=== PATIENT | male | born 1985 | race African-American/Black ===

== ENCOUNTER 2016-10-28 23:50 | Inpatient (IN) | payer OTHER ==
--- NOTE | ~2016-10-28 | CN ---
Consultation Report [facility] [address] [place]. [address] NAME: ORAL PERKINS : 85 STATUS : ADM IN PAT#: [id number] AGE: 31 ADM/REG DATE : 10/29/16 MR#: [id number] REPORT SERV DATE: 10/30/16 DICTATED BY: RALF MARIEE DATE: 10/30/16 REPORT STATUS : Draft TRANSCRIBED BY: MODDeven DATE: 10/30/16 INFECTIOUS DISEASE CONSULT DATE OF CONSULTATION: REASON FOR REFERRAL: Evaluation and treatment of diabetic foot infection. HISTORY OF PRESENT ILLNESS: The patient is a 31-year-old male. He has a history of hypertension, recently poorly-controlled diabetes, hypothyroidism. He has had a DVT in the past. He developed ulcer on his distal lateral right foot in September that grew progressively worse. He states it began spontaneously, perhaps from his shoe. He had no trauma, no cuts or scratches. He has not walked outside barefoot, not been bitten or scratched by an animal. No unusual environmental exposures such as travel. He was [facility] and had a local debridement, was treated with oral Septra. I do not see that any cultures were done there. He had worsening and frankly gangrenous changes in the fifth toe and so came in and was admitted yesterday. Culture of blood was taken and so far that is negative. A culture of the foot was taken upon presentation, but it has only grown Coag- negative staph. It sounds like it was just a surface culture. Because of the gangrenous changes, he was taken to surgery yesterday and the toe was amputated by Dr. Garcia. He had been started empirically on vancomycin and Zosyn. He also had an MRI that showed osteomyelitis, but only in the distal toe. He remains on the vancomycin and Zosyn. He has not had any sensations of fevers or chills at home and his temperature here has been normal. He did have an elevated white blood cell count at presentation of 18,000 with no bands. PAST MEDICAL HISTORY: Otherwise unremarkable. MEDICATIONS: As mentioned above. ALLERGIES: HE HAS NO KNOWN ANTIMICROBIAL ALLERGIES. SOCIAL HISTORY: He is currently disabled, single, nonsmoker. No history of alcohol or substance abuse. FAMILY HISTORY: Noncontributory. PHYSICAL EXAMINATION: GENERAL: Nontoxic adult male in no acute distress. Alert and oriented x3. VITAL SIGNS: His temperature at present 98.5 with a pulse of 82, respirations are 18, blood pressure 99/51. Weight is 152 kg. HEENT: Sclerae are clear. No oral lesions. NECK: Supple. LUNGS: Clear. HEART: Regular rate and rhythm. ABDOMEN: Soft, nontender. Positive bowel sounds. Consultation Report [address] [place] [facility] [address] NAME: ORAL PERKINS : 85 STATUS : ADM IN [facility]#: [id number] AGE: 31 ADM/REG DATE : 10/29/16 MR#: [id number] REPORT SERV DATE: 10/30/16 DICTATED BY: RALF MARIEE DATE: 10/30/16 REPORT STATUS : Draft TRANSCRIBED BY: BISI DATE: 10/30/16 EXTREMITIES: The foot was covered by a bulky surgical dressing. It was just placed on the foot so that was not removed. There was no warmth or redness above that, but there was edema in both lower extremities consistent with venous stasis. No other acute-appearing lesions. LABORATORY DATA: His white blood cell count today 14.7 with hematocrit 24.7 and platelets 579. No bandemia today. BUN and creatinine 14 and 1.4. Cultures as previously mentioned. IMPRESSION: Diabetic foot infection. It is probably mixed bacteria to include gram-positive cocci, gram-negative rods, or anaerobes. So far, the cultures have been completely unhelpful. It would appear based on the surgery than the MRI results, that all of the osteo has now been removed. RECOMMENDATIONS: 1. Review the cultures again tomorrow. 2. Continue Zosyn along with vanc for now. He should not need a long course of antibiotics since the osteo has been removed, but if we have no further information from the cultures, we will have to devise an empiric regimen to treat, perhaps a two- week total course of antibiotics. Finally, I will follow the patient with you. I appreciate very much your consulting on this patient. GILSON Ralf Mariee M.D. / [id number] CC: Stanley Restrepo ANGELA C
--- NOTE | ~2016-10-28 | DS ---
Discharge Summary [facility] [address] [facility] [place]. [address] NAME: ORAL PERKINS : 85 STATUS : DIS IN PAT#: [id number] AGE: 31 ADM/REG DATE : 10/29/16 MR#: [id number] REPORT SERV DATE: 11/06/16 DICTATED BY: SARANYA HENRY DATE: 11/05/16 REPORT STATUS : Draft TRANSCRIBED BY: MODL DATE: 11/05/16 ADMISSION DATE: 10/29/2016 DISCHARGE DATE: 11/05/2016 DISCHARGE DIAGNOSES: 1. Right side fifth toe osteomyelitis, status post ray amputation by Dr. Garcia. 2. Diabetic foot ulcer with diabetes mellitus. 3. Acute kidney injury on chronic kidney disease recovered back to his baseline function. 4. Chronic anticoagulation with Coumadin for previous deep vein thrombosis. 5. BMI 46.7. 6. Anemia postoperatively with acute blood loss, status post one unit of transfusion. HISTORY OF PRESENT ILLNESS: This is a 31-year-old male patient who came to the hospital with pain on his foot. Please see dictated H and P. HOSPITAL COURSE: He was admitted to hospital with diabetic foot ulcer, was treated surgically and medically. Please see dictated consultation from Dr. Tong and Dr. Garcia. Please see dictated interim discharge summary done by Dr. Faulkner. He had identified with osteomyelitis on the fifth right-sided toe, had amputation with Dr. Garcia. Antibiotics being managed by Dr. Tong, and his wound culture is showing anything specific pathogen. He has been treated with empiric broad-spectrum antibiotics. Now, I recommend continuing Augmentin for seven more days. During the hospitalization, he was found to have more anemia. He had 1 transfusion given postoperatively. There is no evidence of bleeding. He remains in stable condition. His kidney function improved back to his normal, and he is tolerating his amputation. Physical therapy has evaluated this patient for the nonweightbearing on the right foot. The patient was followed by wound care and will be discharged home in stable condition. DISCHARGE MEDICATIONS: Augmentin 875 mg twice a day for seven more days. Continuing all home medications including Coumadin 10 mg once a day and Levemir. DISPOSITION: The patient is discharged home in stable condition, need to follow up at [facility] and Dr. Garcia. TIME SPENT: More than 30 minutes. EKL/MODL Saranya Henry M.D. / [id number] Discharge Summary [place] [address] [place]. [address] NAME: ORAL PERKINS : 85 STATUS : DIS IN PAT#: [id number] AGE: 31 ADM/REG DATE : 10/29/16 MR#: [id number] REPORT SERV DATE: 11/06/16 DICTATED BY: SARANYA HENRY DATE: 11/05/16 REPORT STATUS : Draft TRANSCRIBED BY: BISI DATE: 11/05/16 CC: Stanley Wakefield
--- NOTE | ~2016-10-28 | OP ---
Record Of Operation [facility] [address] [place]. [address] NAME: ORAL PERKINS : 85 STATUS : ADM IN PAT#: [id number] AGE: 31 ADM/REG DATE : 10/29/16 MR#: [id number] REPORT SERV DATE: 10/29/16 DICTATED BY: TULIO GARCIA JR. DATE: 10/29/16 REPORT STATUS : Draft TRANSCRIBED BY: MODL DATE: 10/29/16 DATE OF PROCEDURE: 10/29/2016 PREOPERATIVE DIAGNOSIS: Wet gangrene, right 5th toe. POSTOPERATIVE DIAGNOSIS: Wet gangrene, right 5th toe. OPERATION: Ray amputation of right 5th toe. SURGEON: Dr. Tulio Garcia. HISTORY: This is a 31-year-old black male, admitted to the hospital early this morning with wet gangrene of his right 5th toe. He had a white count of 18,000. He is a known diabetic with hemoglobin A1c in the 15 range. PROCEDURE IN DETAIL: The patient was placed on the operating room table. He underwent a general endotracheal anesthetic. Right foot was prepped and draped in a sterile manner as possible. A dorsal incision was made. A racquet-shaped incision was made around the base of the 5th toe. Dissection was carried down the metatarsal shaft, which was then cleared of tissue with an elevator. A power saw was then used to transect the metatarsal shaft proximal to the metatarsal bone. The toe was then carved out of the wound. There were focal digital bleeders that were cauterized. Cultures were done deep in the wound. The wound was irrigated. The dorsal skin of the foot was closed loosely with 3-0 nylon. The wound was packed open with 4 x 4. The patient tolerated the procedure well and taken back to recovery room in serious condition. There were no intraoperative complications. ESTIMATED BLOOD LOSS: 300 mL. DF/MODL Tulio Garcia Jr., M.D. / [id number] CC: Stanley Restrepo ANGELA C
--- NOTE | ~2016-10-28 | HP ---
History And Physical [place] [id number] [facility] [place]. [address] NAME: ORAL PERKINS : 85 STATUS : ADM IN PAT#: [id number] AGE: 31 ADM/REG DATE : 10/29/16 MR#: [id number] REPORT SERV DATE: 10/29/16 DICTATED BY: RAQUEL MONSALVE DATE: 10/29/16 REPORT STATUS : Draft TRANSCRIBED BY: MODL DATE: 10/29/16 DATE OF ADMISSION: 10/29/2016 CHIEF COMPLAINT: A 31-year-old male presenting with progressive right diabetic foot ulcer. HISTORY OF PRESENTING ILLNESS: The patient's history was obtained through careful interview with the patient, coupled with review of [facility] medical records. The patient, in the end of 09/2016, developed a new right foot ulcer. He does not recall any injury or any kind of event that led to this ulcer. It simply appeared one day apparently. He thinks it first had a blister that then began to drain a pussy yellow discharge and then had increasing redness and pinkness around it. He has been on antibiotics since 10/17/2016 and has been seen by [facility], but has only had worsening discomfort and purulent drainage from this site. He describes right foot pain, an aching quality, 10/10 severity, making it difficult to ambulate. For the last three days, he has had myalgias diffusely and is becoming increasingly ill. No fevers or chills. No nausea or vomiting. Earlier in 2016, he had "run out" of his diabetes medications and so when he had a hemoglobin A1c of 15.4 on 10/14/2016, he states it is because he had not been taking insulin for an extended period of time. However, over these last few weeks, he has been back on insulin with better control of his diabetes apparently. REVIEW OF SYSTEMS: Otherwise, a 14-point review of systems was obtained and was negative. PAST MEDICAL HISTORY: 1. Diabetes. Hemoglobin A1c of 15.4, 10/2016, but with sugars improved recently on insulin. 2. Hypothyroidism. 3. DVT, 2012, on chronic Coumadin. Also had an IVC filter placement. 4. Hypertension. 5. Right breast gynecomastia. PAST SURGICAL HISTORY: 1. Left hip surgery x2. 2. Left partial foot amputation 2015 for infection. 3. IVC filter placement. ALLERGIES: NO KNOWN DRUG ALLERGIES. History And Physical [address] [place]. [address] NAME: ORAL PERKINS : 85 STATUS : ADM IN PAT#: [id number] AGE: 31 ADM/REG DATE : 10/29/16 MR#: [id number] REPORT SERV DATE: 10/29/16 DICTATED BY: RAQUEL MONSALVE DATE: 10/29/16 REPORT STATUS : Draft TRANSCRIBED BY: BISI DATE: 10/29/16 SOCIAL HISTORY: No tobacco abuse. No alcohol abuse. He is single. Lives with a friend. Has a 4-year-old daughter. Is on disability. Unemployed. FAMILY HISTORY: Diabetes. CURRENT MEDICATIONS: Include hydrocodone p.r.n., sliding-scale insulin, Levemir 15 units in the morning and 20 units at night, Bactrim double strength p.o. b.i.d., Paxil, lisinopril, Synthroid, glyburide, Lipitor, Coumadin. PHYSICAL EXAMINATION: VITAL SIGNS: Temperature 97.6, pulse 106, blood pressure 130/78, respiratory rate 18, O2 saturation 95% on room air. GENERAL: A pleasant, cooperative male. He is in evidence of distress secondary to right foot pain. HEENT: Pupils equal, round, and reactive to light. No conjunctival pallor. No scleral icterus. Nares are patent. Oropharynx is clear of obstruction. Dry mucous membranes. NECK: Trachea midline. No thyromegaly. LYMPH: No cervical lymphadenopathy. No supraclavicular lymphadenopathy. No right inguinal lymphadenopathy. RESPIRATORY: Clear to auscultation at bases. No wheezes, rales, or rhonchi. Normal respiratory effort. CARDIOVASCULAR: Tachycardic, regular rhythm. No murmurs, rubs, or gallops. The patient does have edema of the lower extremities that is symmetrical. Nonpitting though. ABDOMEN: Soft, nontender, nondistended. Normal bowel sounds auscultated throughout. No hepatosplenomegaly. DERMATOLOGICAL: The patient's right foot has a large necrotic-appearing ulcer with copious brownish pussy discharge. It is underneath his fifth digit. It is surrounded with erythema, heat, swelling, and tenderness, but otherwise warm and dry extremities. No pallor, no cyanosis. PSYCHIATRIC: Normal affect. Good mood. Alert and oriented x3. LABORATORY DATA: White blood cell count 18.2, hemoglobin 10, hematocrit 31, platelets 641. Sodium 135, potassium 4.2, chloride 98, bicarb 27, BUN 17, creatinine 1.29 from baseline creatinine of 0.9, glucose 127. Urinalysis negative for infection, but shows 100 protein, lipase 60, albumin 2.8. INR 1.6. Liver enzymes within normal limits. STUDIES: 1. Review of an arterial Doppler ultrasound and a venous Doppler ultrasound of lower extremities on 10/15/2016 showed no blood clots. No significant peripheral arterial disease. 2. Chest x-ray by my own evaluation shows no acute cardiopulmonary process. 3. A CT scan of the abdomen and pelvis was reported as essentially negative except for right inguinal lymphadenopathy (not recognized on exam). 4. Reported x-ray of the right foot suggested osteomyelitis. ASSESSMENT AND PLAN: 1. Sepsis. White blood cell count of 18.2, tachycardia. Check blood culture. Check History And Physical [address] [address] NAME: ORAL PERKINS : 85 STATUS : ADM IN [facility]#: [id number] AGE: 31 ADM/REG DATE : 10/29/16 MR#: [id number] REPORT SERV DATE: 10/29/16 DICTATED BY: RAQUEL MONSALVE DATE: 10/29/16 REPORT STATUS : Draft TRANSCRIBED BY: BISI DATE: 10/29/[address] on IV antibiotics. 2. Right foot infected diabetic ulcer with osteomyelitis. Obtain a wound culture at the bedside. Place on IV vancomycin, IV Zosyn. Check an MRI to define the extent of disease. Consult Dr. Cervantes, vascular surgeon, for anticipated partial amputation of the foot. 3. Diabetes. Recent hemoglobin A1c of 15.4, but had "run out" of medications and states that his diabetes has been under better control on home Levemir. We will continue this basal insulin, sliding scale insulin. Obtain a healthcare educator consult. 4. History of deep vein thrombosis, 2012, with IVC filter placement, but a negative Doppler ultrasound of the leg for deep vein thrombosis earlier in 10/2016. Holding Coumadin for anticipated surgery. KPL/MODL Raquel Monsalve M.D. / [id number] CC: Stanley Wolfe
--- NOTE | ~2016-10-28 | CN ---
Consultation Report [facility] [address] [place]. [address] NAME: ORAL THOMPSON : 85 STATUS : ADM IN PAT#: [id number] AGE: 31 ADM/REG DATE : 10/29/16 MR#: [id number] REPORT SERV DATE: 10/31/16 DICTATED BY: DATE: REPORT STATUS : Draft TRANSCRIBED BY: MODL DATE: 10/31/16 CONSULTATION DATE OF CONSULTATION: REASON FOR CONSULTATION: Acute kidney injury versus CKD. HISTORY OF PRESENT ILLNESS: Mr. Thompson is a 31-year-old black male, with a history of acute kidney injury in the past. We saw him at [facility] last year, at that time he had osteomyelitis, and underwent a partial foot amputation to the left. Creatinine peaked at 3. It sounds like, since then, he has had no care for his kidney disease, as he did not get a regular lab testing, so in the interim I am unsure of what his kidney function has done. When we signed off on him last year his creatinine was still 3, we send him home on some Lasix and he never followed up as he was supposed to. He is in the hospital at [facility] at this time for osteoma of the right 5th toe. He is now status post 5th ray amputation, postop day #1, creatinine was 1.3. When he came in today it is 1.4. He does have diabetes with neuropathy. He is unsure if he has any retinopathy as he does not get regular eye care. He does have some proteinuria on his urinalysis on arrival. He has a negative renal ultrasound. PAST MEDICAL HISTORY: Acute kidney injury, diabetes, osteomyelitis, left partial foot amputation, right 5th toe amputation, obesity, peripheral neuropathy, gynecomastia, hypothyroidism, DVT with an IVC filter, and left femur surgery. SOCIAL HISTORY: He lives with a friend. He is disabled. No tobacco, alcohol, or illicit drug use. FAMILY MEDICAL HISTORY: Strongly positive for end-stage renal disease in his grandmother and grandfather, and his grandmother who is at bedside and states she has advanced kidney disease as well. There is also PE, hypertension, and diabetes in family. ALLERGIES: NONE. MEDICATIONS: At time of consultation, Dilaudid, Zofran, Percocet, he was on lisinopril at home, and Bactrim for one week prior to presentation. REVIEW OF SYSTEMS: A 12-point review of systems obtained and negative with the exception that in the HPI. PHYSICAL EXAMINATION: VITAL SIGNS: Temperature 98.1, blood pressure 124/66, pulse 81, respiratory rate 18, O2 saturation is 98% on room air. GENERAL: This is a pleasant and cooperative black male. He is awake, alert, and oriented x3. In no acute distress. Answers questions appropriately. Consultation Report [address] [place]. [address] NAME: ORAL THOMPSON : 85 STATUS : ADM IN PAT#: [id number] AGE: 31 ADM/REG DATE : 10/29/16 MR#: [id number] REPORT SERV DATE: 10/31/16 DICTATED BY: DATE: REPORT STATUS : Draft TRANSCRIBED BY: BISI DATE: 10/31/16 HEENT: Normocephalic and atraumatic. Conjunctivae clear. Sclerae anicteric. Pupils are equal and round. Oral mucosa is moist. NECK: Thick. I did not see any neck vein distention. LUNGS: Respirations are even and unlabored. Breath sounds are clear to auscultation. HEART: Rate is regular. No murmur, rub, or gallop. ABDOMEN: Soft and nontender. No CVA tenderness. BACK: Within normal limits. EXTREMITIES: To the right lower extremity, he has 2+ edema, to the left lower extremity only trace. SKIN: No unusual rash or skin lesions. NEURO: No focal deficits. Mood and affect, pleasant and appropriate. PERTINENT LABS AND X-RAYS: Renal ultrasound negative. Ultrasound of the breast bilaterally showed gynecomastia. He had a wound culture that got strep viridans and coagulase negative Staph. Sodium 139, potassium 4.5, chloride 104, CO2 25, BUN of 13, creatinine 1.4. Glucose 80, calcium 8.4, magnesium of 2.2. WBCs 13,000, H and H 6.9 and 22, platelets 633,000. IMPRESSION: 1. Acute kidney injury versus chronic kidney disease, favors chronic kidney disease in the setting of diabetes. 2. Osteomyelitis. 3. Status post 5th toe ray amputation. 4. Proteinuria. 5. Diabetes with neuropathy. 6. Anemia. PLAN/RECOMMENDATION: Acute kidney injury versus CKD, as above favors CKD in the setting of diabetes, with known proteinuria, and low albumin. We will quantify his protein excretion in his urine. I have discussed with him the importance of blood pressure and blood sugar control, and maintaining kidney function as well as possible. Given his strong family history of kidney disease and end-stage renal disease. I have instructed him on the importance of followup and we will be glad to follow him up in CKD Clinic. No further imaging or other studies required and on his discharge would definitely restart his ERIC inhibitor and if blood pressure permits, we will be glad to follow up in CKD Clinic, and I did discuss the importance of avoiding nephrotoxins, specifically NSAIDs with the patient, and importance of medicine management. Thank you for the consultation. NEW/BISI VIKTORIA English Consultation Report [address] [place]. [address] NAME: ORAL THOMPSON : 85 STATUS : ADM IN PAT#: [id number] AGE: 31 ADM/REG DATE : 10/29/16 MR#: [id number] REPORT SERV DATE: 10/31/16 DICTATED BY: DATE: REPORT STATUS : Draft TRANSCRIBED BY: BISI DATE: 10/31/16 / [id number] CC: Stanley Restrepo ANGELA C
--- NOTE | ~2016-10-28 | IDS ---
Interim Discharge Summary [facility] [address] [place]. [address] NAME: ORAL PERKINS : 85 STATUS : ADM IN [facility]#: [id number] AGE: 31 ADM/REG DATE : 10/29/16 MR#: [id number] REPORT SERV DATE: 11/04/16 DICTATED BY: FREDDIE SWAN DATE: 11/04/16 REPORT STATUS : Draft TRANSCRIBED BY: MODL DATE: 11/04/16 ADMISSION DATE: 10/29/2016 DISCHARGE DATE: Total days of service provided from 10/29/2016 to 11/04/2016. CURRENT MEDICAL DIAGNOSES: 1. Status post right ray amputation of the fifth toe for osteomyelitis done by Dr. Garcia on 10/29/2016. 2. Acute kidney injury, resolved. Chronic kidney disease, creatinine at the baseline. 3. Nausea and vomiting, resolved. Was related to constipation. The patient is prone to constipation, laxatives regularly. 4. Diabetes type 2, controlled. 5. Leukocytosis, but afebrile and wound looks clean. ID recommended the patient to be discharged on Augmentin for seven days. 6. History of deep vein thrombosis in the past, on chronic Coumadin anticoagulation with a history of IVC filter placement. INR to be therapeutic. 7. Anemia of chronic disease, status post one unit of blood transfusion in the beginning of hospitalization. Stable hemoglobin and hematocrit. Needs to recheck hemoglobin and hematocrit after Coumadin started. 8. Undertreated hypothyroidism as the cause of constipation. Needs to continue his Synthroid, to be compliant with it, and check TSH in four weeks per Gillian Hodge at [facility]. 9. Folate deficiency. CONSULTANTS ON THE CASE: Infectious Disease, Dr. Tong; retail shift manager, Dee Garzon, under supervision of Dr. Amezcua; and Dr. Garcia of Vascular Surgery. IMAGING STUDIES DONE DURING THIS HOSPITALIZATION: Bilateral lower extremity duplex ultrasound done on admission, no evidence of DVT. MRI on the lower extremity on 10/29 showed osteomyelitis of the head of the fifth digit metatarsal bone with surrounding associated cellulitis and penetrating open wound. X-ray, [facility], on 11/[address] on the abdomen and pelvis without contrast done on 10/28 showed no acute GI or obstruction and soft tissue changes of the right breast, recommend clinical correlation. Ultrasound of kidney on 10/31, kidneys are relatively large, which is nonspecific, maybe due to the patient's overall size. Otherwise, negative ultrasound on the kidney. Ultrasound on bilateral breasts showed subareolar fibroglandular tissue in both breasts, consistent with gynecomastia. The tissue in the right subareolar region measures 2.5 to 2.8 to 1.7 cm. The tissue on the left subareolar region measures 1.8 to 1.8 to 1.4 cm. No masses. Impression, bilateral gynecomastia, recommend followup in six months with a repeated ultrasound and mammogram. CT of the lower back, 10/29, unremarkable CT of the lumbar spine. HISTORY OF PRESENT ILLNESS: Interim Discharge Summary [address] [address] NAME: ORAL PERKINS : 85 STATUS : ADM IN PAT#: [id number] AGE: 31 ADM/REG DATE : 10/29/16 MR#: [id number] REPORT SERV DATE: 11/04/16 DICTATED BY: FREDDIE SWAN DATE: 11/04/16 REPORT STATUS : Draft TRANSCRIBED BY: BISI DATE: 11/04/16 1. Briefly, this is a 31-year-old male, who was admitted to the hospital with osteomyelitis on his fifth toe and he had the MRI of the toe, which showed osteomyelitis and surgery was done of amputation of the fifth right ray, as well as antibiotics, initially vancomycin and Zosyn and then switched to Augmentin per Dr. Tong. Cultures showed just contamination, so currently his wound looks clean. Dr. Garcia recommended the patient to be discharged and to follow up with him, and there is a followup appointment already scheduled for Dr. Garcia. He also needs to not to put weight on that foot and Dr. Tong was also okay the patient to be discharged, he signed off. 2. Anemia of acute blood loss versus of chronic kidney disease secondary to kidney problems. The patient had low hemoglobin in the beginning of admission. On 10/31, his hemoglobin was 6.9. He underwent one unit of blood transfusion, and his hemoglobin came up to 7.8, it is stable for several days, but the patient is on Coumadin for history of DVT in the past, so he needs to restart his Coumadin; and hemoglobin, he had one unit of blood transfusion, and we will have to watch his hemoglobin after his anticoagulation will be started to be sure it will not drop any more. His INR needs to be therapeutic before he goes, and pharmacy is doing his INR. 3. Acute kidney injury. He had mild acute kidney injury during this hospitalization. Nephrology was consulted, so his creatinine after surgery improved and retail shift manager says that the patient has chronic kidney disease and his baseline creatinine is 1.4 to 1.6. Currently, his creatinine is 1.49, which is the baseline. We would recommend to hold lisinopril until he sees Nephrology Clinic and the patient had some degree of noncompliance, he never followed up with a retail shift manager before, although he was recommended to follow up, so it was strongly recommended the patient to follow up with the Nephrology Clinic. 4. He currently has leukocytosis, but it has improved and Dr. Tong was okay with this leukocytosis since wound looks clean and he is afebrile, so Augmentin for seven days, prescription on the chart. 5. Constipation, two to three episodes of obstipation. The patient has hypothyroidism, and he did not take his Synthroid. He was strongly encouraged to take his Synthroid. He was explained that it can cause constipation and he needs to check his TSH per Gillian Hodge in four weeks. This was explained to the patient, and he said that he has levothyroxine at home. 6. Folic acid deficiency also was found and prescription for folate left on the chart. 7. Diabetes mellitus. Blood sugar was very well controlled on his home medication regimen of 20 units of Levemir at bedtime and 15 in the morning and insulin sliding scale, but yesterday, he developed nausea and vomiting, likely related to him being constipated, so we reduced his insulin to 10 units twice a day, but I think once he starts eating his normal diet, he will require his home regimen of 50 units in the morning and 20 at night. I do not recommend to start his DiaBeta done now because it caused hypoglycemia on him and this was also discussed with the patient. 8. History of deep vein thrombosis in the past. Coumadin anticoagulation started. PLAN FOR THIS PATIENT: 1. We will check his PT/INR and wait until PT/INR becomes therapeutic to stop Lovenox when INR will be 2 and above, and also he needs to follow up with Dr. Garcia on 11/14 at 11. He needs to follow up with Gillian Hodge, appointment is scheduled for 11/18 at 10 Interim Discharge Summary [facility] [id number] [place]. [address] NAME: ORAL PERKINS : 85 STATUS : ADM IN PAT#: [id number] AGE: 31 ADM/REG DATE : 10/29/16 MR#: [id number] REPORT SERV DATE: 11/04/16 DICTATED BY: FREDDIE SWAN DATE: 11/04/16 REPORT STATUS : Draft TRANSCRIBED BY: BISI DATE: 11/04/16 o'clock. He also needs to follow up with [facility], appointment on 11/25 at 1340 hours is scheduled. He needs to check his TSH in four weeks per Gillian Hodge at [facility]. 2. Prescriptions are written for amoxicillin 875 p.o. b.i.d., as well as Protonix 40 mg a day, folic acid 1 mg a day, and insulin NovoLog sliding scale level 1, as well as the patient may need pain medications on discharge. 3. My partner will see this patient starting tomorrow morning. He will check his hemoglobin and hematocrit. He may need a blood transfusion if hemoglobin and hematocrit will drop on Coumadin since he had a significant drop since admission, and PT/INR should be followed. 4. Also, follow up his white count. Otherwise, the patient is doing well. He needs a followup ultrasound and mammogram in six months for further evaluation of his gynecomastia. My partner will see this patient starting tomorrow morning. MG/MODL Freddie Swan M.D. / [id number] CC: Stanley Restrepo Angela C Mark Anderson, M.D. Daniel Fisher Jr., M.D. [facility]
[2016-10-28 21:26] LABS: BASOPHILS 0.1 %; BASOPHILS ABSOLUTE 0.02 10/3/uL (0.0-0.16); EOSINOPHILS 2.6 %; EOSINOPHILS ABSOLUTE 0.48 10/3/uL (0.0-0.53); ER CBC TAT 0 Hrs 07 Mins; HEMATOCRIT 30.5 % (40.0-51.0); IMMATURE GRANULOCYTES 0.7 %; IMMATURE GRANULOCYTES ABSOLUTE 0.13 10/3/uL (0.0-0.11); LYMPHOCYTES 14.1 %; LYMPHOCYTES ABSOLUTE 2.57 10/3/uL (0.67-4.30); MEAN CORPUS HGB CONC 32.8 g/dL (32.0-36.0); MEAN CORPUSCULAR HEMOGLOB 24.5 pg (26.0-34.0); MEAN CORPUSCULAR VOLUME 74.8 fL (80-100); MEAN PLATELET VOLUME 8.6 fL (9.2-13.0); MONOCYTES 10.6 %; MONOCYTES ABSOLUTE 1.93 10/3/uL (0.21-1.20); NEUTROPHILS 71.9 %; NEUTROPHILS ABSOLUTE 13.08 10/3/uL (2.02-8.40); PLATELET COUNT 641 10/3/uL (150-400); RBC DISTRIBUTION WIDTH 14.3 % (12.0-16.0); RED CELL COUNT 4.08 10/6/uL (4.7-6.1); WHITE BLOOD CELLS 18.2 10/3/uL (4.5-10.5)
[2016-10-28 21:34] LABS: ASCORBIC ACID (UR NOT ORDER) NEG (NEG); BILIRUBIN, URINE NEGATIVE (NEG); ER URINALYSIS TAT 0 Hrs 15 Mins; KETONE, URINE NEGATIVE (NEG); LEUKOCYTE ESTERASE(NOT OR NEG (NEG); NITRITE (URINE) NEG (NEG); WBC (NOT ORDERED) (RFLEX) 3 (0-5)
[2016-10-28 21:35] LABS: MANUAL DIFF NO %
[2016-10-28 21:41] LABS: A/G RATIO 0.4 (0.7-1.9); ALBUMIN 2.8 G/DL (3.5-5.0); ALKALINE PHOSPHATASE 117 U/L (45-117); BUN (BLOOD UREA NITROGEN) 17 MG/DL (6-23); CALCIUM, SERUM 8.7 MG/DL (8.5-10.4); CHLORIDE, SERUM 98 MMOL/L (96-112); CO2 (CARBON DIOXIDE) 27 MMOL/L (24-34); CREATININE 1.29 MG/DL (0.70-1.30); GFR AFRICAN AMERICAN 85 ML/MIN (>=60); GFR NON AFRICAN AMERICAN 73 ML/MIN (>=60); GLOBULIN 6.7 G/DL (2.5-4.1); GLUCOSE, SERUM 127 MG/DL (60-99); POTASSIUM, SERUM 4.2 MMOL/L (3.5-5.3); SGOT(AST) 12 U/L (5-40); SGPT(ALT) 14 U/L (5-65); SODIUM, SERUM 135 MMOL/L (135-148); TOTAL BILIRUBIN 0.2 MG/DL (0-1.2); TOTAL PROTEIN 9.5 G/DL (6.0-8.5)
[2016-10-28 21:52] LABS: PLATELET ESTIMATE INC (ADEQUATE); RBC MORPHOLOGY NORM (NORMAL)
[2016-10-29 00:03] LABS: INTERNATIONAL NORMAL RATI 1.6 UNITS (-); PARTIAL THROMBO TIME 42.8 SEC (22.5-37.2); PROTIME (NOT ORD) 18.7 SEC (12.0-14.5)
[2016-10-29] MEDS ORDERED: NORCO1 TA1 PO (02:16)
[2016-10-29] MEDS ORDERED: BACTRIM DS1 TAB PO (02:17)
[2016-10-29] MEDS ORDERED: PAX10 PO (02:19)
[2016-10-29] MEDS ORDERED: PRIN2.5 PO (02:20)
[2016-10-29] MEDS ORDERED: NOVOLOG SC (02:20)
[2016-10-29] MEDS ORDERED: LEVEMIR SC ×2 (02:20)
[2016-10-29] MEDS ORDERED: SYN.025B PO (02:20)
[2016-10-29] MEDS ORDERED: DIABETA5 PO (02:21)
[2016-10-29] MEDS ORDERED: LIPITOR40 PO (02:21)
[2016-10-29] MEDS ORDERED: COUMADIN10 MG PO (02:21)
[2016-10-29] MEDS ORDERED: *UNABLE1 (02:22)
[2016-10-29 03:33] LABS: LACTATE 0.7 MMOL/L (0.3-2.4)
[2016-10-29 06:21] LABS: BASOPHILS 0.2 %; BASOPHILS ABSOLUTE 0.03 10/3/uL (0.0-0.16); EOSINOPHILS 3.1 %; EOSINOPHILS ABSOLUTE 0.54 10/3/uL (0.0-0.53); HEMATOCRIT 28.9 % (40.0-51.0); HEMOGLOBIN 9.3 g/dL (13.6-17.8); IMMATURE GRANULOCYTES 1.2 %; IMMATURE GRANULOCYTES ABSOLUTE 0.21 10/3/uL (0.0-0.11); LYMPHOCYTES ABSOLUTE 3.33 10/3/uL (0.67-4.30); MEAN CORPUS HGB CONC 32.2 g/dL (32.0-36.0); MEAN CORPUSCULAR HEMOGLOB 24.3 pg (26.0-34.0); MEAN CORPUSCULAR VOLUME 75.5 fL (80-100); MEAN PLATELET VOLUME 8.6 fL (9.2-13.0); MONOCYTES 10.2 %; MONOCYTES ABSOLUTE 1.79 10/3/uL (0.21-1.20); NEUTROPHILS 66.3 %; NEUTROPHILS ABSOLUTE 11.59 10/3/uL (2.02-8.40); PLATELET COUNT 619 10/3/uL (150-400); RBC DISTRIBUTION WIDTH 14.4 % (12.0-16.0); RED CELL COUNT 3.83 10/6/uL (4.7-6.1); WHITE BLOOD CELLS 17.5 10/3/uL (4.5-10.5)
[2016-10-29 06:22] LABS: MANUAL DIFF NO %
[2016-10-29 06:25] LABS: INTERNATIONAL NORMAL RATI 1.6 UNITS (-); PROTIME (NOT ORD) 18.9 SEC (12.0-14.5)
[2016-10-29 06:26] LABS: PARTIAL THROMBO TIME 41.1 SEC (22.5-37.2)
[2016-10-29 06:46] LABS: A/G RATIO 0.4 (0.7-1.9); ALBUMIN 2.5 G/DL (3.5-5.0); ALKALINE PHOSPHATASE 107 U/L (45-117); BUN (BLOOD UREA NITROGEN) 14 MG/DL (6-23); CALCIUM, SERUM 8.7 MG/DL (8.5-10.4); CHLORIDE, SERUM 102 MMOL/L (96-112); CO2 (CARBON DIOXIDE) 23 MMOL/L (24-34); CREATININE 1.09 MG/DL (0.70-1.30); GFR AFRICAN AMERICAN 104 ML/MIN (>=60); GFR NON AFRICAN AMERICAN 90 ML/MIN (>=60); GLOBULIN 6.1 G/DL (2.5-4.1); GLUCOSE, SERUM 139 MG/DL (60-99); SGOT(AST) 10 U/L (5-40); SGPT(ALT) 12 U/L (5-65); SODIUM, SERUM 136 MMOL/L (135-148); TOTAL BILIRUBIN 0.2 MG/DL (0-1.2); TOTAL PROTEIN 8.6 G/DL (6.0-8.5)
[2016-10-29 06:48] LABS: B NATRIURETIC PEPTIDE (BNP) 37.8 PG/ML (< 100.0)
[2016-10-29 07:07] LABS: PROCALCITONIN 0.11 ng/mL (<0.5)
[2016-10-29 10:12] LABS: GLYCOHEMOGLOBIN (HbA1c) 13.3 % (4.7-6.1)
[2016-10-30 06:50] LABS: HEMATOCRIT 24.7 % (40.0-51.0); HEMOGLOBIN 7.7 g/dL (13.6-17.8); MANUAL DIFF YES %; MEAN CORPUS HGB CONC 31.2 g/dL (32.0-36.0); MEAN CORPUSCULAR HEMOGLOB 23.8 pg (26.0-34.0); MEAN CORPUSCULAR VOLUME 76.5 fL (80-100); MEAN PLATELET VOLUME 8.5 fL (9.2-13.0); NUCLEATED RED BLOOD CELLS 0.1 /100WBC (0-0); PLATELET COUNT 579 10/3/uL (150-400); RBC DISTRIBUTION WIDTH 14.6 % (12.0-16.0); RED CELL COUNT 3.23 10/6/uL (4.7-6.1); WHITE BLOOD CELLS 14.7 10/3/uL (4.5-10.5)
[2016-10-30 07:05] LABS: BUN (BLOOD UREA NITROGEN) 14 MG/DL (6-23); CALCIUM, SERUM 7.9 MG/DL (8.5-10.4); CHLORIDE, SERUM 104 MMOL/L (96-112); CO2 (CARBON DIOXIDE) 22 MMOL/L (24-34); GFR AFRICAN AMERICAN 77 ML/MIN (>=60); GFR NON AFRICAN AMERICAN 66 ML/MIN (>=60); GLUCOSE, SERUM 139 MG/DL (60-99); SODIUM, SERUM 138 MMOL/L (135-148)
[2016-10-30 07:06] LABS: POTASSIUM, SERUM 4.9 MMOL/L (3.5-5.3)
[2016-10-30 07:13] LABS: HYPOCHROMIA 1+ (3-10/OIF) (0-2/OIF); LYMPHOCYTES 19 %; LYMPHOCYTES ABSOLUTE (CALC) 2.79 10/3/uL (0.67-4.30); MICROCYTES 1+ (5-10/OIF) (0-5/OIF); MONOCYTES 5 %; MONOCYTES ABSOLUTE (CALC) 0.74 10/3/uL (0.21-1.20); NEUTROPHILS ABSOLUTE (CALC) 11.17 10/3/uL (2.02-8.40); PLATELET ESTIMATE SLT INC (ADEQUATE); SEGMENTED NEUTROPHIL (0) 76 %; TOTAL NUCLEATED CELLS 100
[2016-10-31 05:25] LABS: BASOPHILS 0.2 %; BASOPHILS ABSOLUTE 0.03 10/3/uL (0.0-0.16); EOSINOPHILS 4.4 %; EOSINOPHILS ABSOLUTE 0.57 10/3/uL (0.0-0.53); IMMATURE GRANULOCYTES 1.2 %; IMMATURE GRANULOCYTES ABSOLUTE 0.16 10/3/uL (0.0-0.11); LYMPHOCYTES 23.3 %; LYMPHOCYTES ABSOLUTE 3.02 10/3/uL (0.67-4.30); MEAN CORPUS HGB CONC 31.2 g/dL (32.0-36.0); MEAN CORPUSCULAR HEMOGLOB 23.6 pg (26.0-34.0); MEAN CORPUSCULAR VOLUME 75.7 fL (80-100); MEAN PLATELET VOLUME 8.4 fL (9.2-13.0); MONOCYTES 8.4 %; MONOCYTES ABSOLUTE 1.09 10/3/uL (0.21-1.20); NEUTROPHILS 62.5 %; NEUTROPHILS ABSOLUTE 8.11 10/3/uL (2.02-8.40); PLATELET COUNT 633 10/3/uL (150-400); RBC DISTRIBUTION WIDTH 14.3 % (12.0-16.0); RED CELL COUNT 2.92 10/6/uL (4.7-6.1)
[2016-10-31 05:34] LABS: HEMATOCRIT 22.1 % (40.0-51.0); HEMOGLOBIN 6.9 g/dL (13.6-17.8); MANUAL DIFF NO %
[2016-10-31 05:40] LABS: BUN (BLOOD UREA NITROGEN) 13 MG/DL (6-23); CALCIUM, SERUM 8.4 MG/DL (8.5-10.4); CHLORIDE, SERUM 104 MMOL/L (96-112); CO2 (CARBON DIOXIDE) 25 MMOL/L (24-34); GFR AFRICAN AMERICAN 77 ML/MIN (>=60); GFR NON AFRICAN AMERICAN 66 ML/MIN (>=60); POTASSIUM, SERUM 4.5 MMOL/L (3.5-5.3); SODIUM, SERUM 139 MMOL/L (135-148)
[2016-10-31 05:42] LABS: GLUCOSE, SERUM 80 MG/DL (60-99)
[2016-10-31 17:59] LABS: % IRON SAT 20 % (20-50); FERRITIN 429 NG/ML (26-388); FOLATE 4.7 NG/ML (>5.2); IRON BINDING CAPACITY 161 MCG/DL (250-450); IRON, SERUM 32 MCG/DL (35-150)
[2016-10-31 19:22] LABS: CREATININE, URINE 54.6 MG/DL
[2016-11-01 06:53] LABS: BASOPHILS 0.3 %; BASOPHILS ABSOLUTE 0.04 10/3/uL (0.0-0.16); EOSINOPHILS 4.2 %; EOSINOPHILS ABSOLUTE 0.58 10/3/uL (0.0-0.53); HEMATOCRIT 23.3 % (40.0-51.0); HEMOGLOBIN 7.7 g/dL (13.6-17.8); IMMATURE GRANULOCYTES 1.8 %; IMMATURE GRANULOCYTES ABSOLUTE 0.25 10/3/uL (0.0-0.11); LYMPHOCYTES 20.6 %; LYMPHOCYTES ABSOLUTE 2.82 10/3/uL (0.67-4.30); MEAN CORPUSCULAR HEMOGLOB 25.4 pg (26.0-34.0); MEAN CORPUSCULAR VOLUME 76.9 fL (80-100); MEAN PLATELET VOLUME 8.4 fL (9.2-13.0); MONOCYTES 8.4 %; MONOCYTES ABSOLUTE 1.15 10/3/uL (0.21-1.20); NEUTROPHILS 64.7 %; NEUTROPHILS ABSOLUTE 8.82 10/3/uL (2.02-8.40); PLATELET COUNT 640 10/3/uL (150-400); RBC DISTRIBUTION WIDTH 14.7 % (12.0-16.0); RED CELL COUNT 3.03 10/6/uL (4.7-6.1); WHITE BLOOD CELLS 13.7 10/3/uL (4.5-10.5)
[2016-11-01 06:58] LABS: MANUAL DIFF NO %
[2016-11-01 07:03] LABS: ALBUMIN 2.1 G/DL (3.5-5.0); BUN (BLOOD UREA NITROGEN) 11 MG/DL (6-23); CALCIUM, SERUM 7.7 MG/DL (8.5-10.4); CHLORIDE, SERUM 105 MMOL/L (96-112); CO2 (CARBON DIOXIDE) 28 MMOL/L (24-34); CREATININE 1.67 MG/DL (0.70-1.30); GFR AFRICAN AMERICAN 62 ML/MIN (>=60); GFR NON AFRICAN AMERICAN 54 ML/MIN (>=60); PHOSPHORUS, SERUM 3.8 MG/DL (2.5-4.5); POTASSIUM, SERUM 4.5 MMOL/L (3.5-5.3); SODIUM, SERUM 139 MMOL/L (135-148)
[2016-11-01 07:06] LABS: GLUCOSE, SERUM 130 MG/DL (60-99)
[2016-11-02 06:27] LABS: BASOPHILS 0.2 %; BASOPHILS ABSOLUTE 0.03 10/3/uL (0.0-0.16); EOSINOPHILS 4.4 %; EOSINOPHILS ABSOLUTE 0.56 10/3/uL (0.0-0.53); HEMATOCRIT 24.8 % (40.0-51.0); HEMOGLOBIN 7.7 g/dL (13.6-17.8); IMMATURE GRANULOCYTES 1.7 %; IMMATURE GRANULOCYTES ABSOLUTE 0.22 10/3/uL (0.0-0.11); LYMPHOCYTES 23.9 %; LYMPHOCYTES ABSOLUTE 3.07 10/3/uL (0.67-4.30); MEAN CORPUSCULAR HEMOGLOB 24.1 pg (26.0-34.0); MEAN CORPUSCULAR VOLUME 77.5 fL (80-100); MEAN PLATELET VOLUME 8.2 fL (9.2-13.0); MONOCYTES 8.6 %; NEUTROPHILS 61.2 %; NEUTROPHILS ABSOLUTE 7.88 10/3/uL (2.02-8.40); PLATELET COUNT 685 10/3/uL (150-400); RBC DISTRIBUTION WIDTH 14.7 % (12.0-16.0); WHITE BLOOD CELLS 12.9 10/3/uL (4.5-10.5)
[2016-11-02 06:29] LABS: MANUAL DIFF NO %
[2016-11-02 06:35] LABS: ALBUMIN 2.2 G/DL (3.5-5.0); BUN (BLOOD UREA NITROGEN) 12 MG/DL (6-23); CHLORIDE, SERUM 105 MMOL/L (96-112); CO2 (CARBON DIOXIDE) 30 MMOL/L (24-34); CREATININE 1.66 MG/DL (0.70-1.30); GFR AFRICAN AMERICAN 63 ML/MIN (>=60); GFR NON AFRICAN AMERICAN 54 ML/MIN (>=60); GLUCOSE, SERUM 128 MG/DL (60-99); PHOSPHORUS, SERUM 3.6 MG/DL (2.5-4.5); POTASSIUM, SERUM 4.4 MMOL/L (3.5-5.3); SODIUM, SERUM 141 MMOL/L (135-148)
[2016-11-02 06:37] LABS: CALCIUM, SERUM 8.7 MG/DL (8.5-10.4)
[2016-11-03 06:03] LABS: BASOPHILS 0.1 %; BASOPHILS ABSOLUTE 0.02 10/3/uL (0.0-0.16); EOSINOPHILS 3.5 %; EOSINOPHILS ABSOLUTE 0.56 10/3/uL (0.0-0.53); HEMOGLOBIN 7.4 g/dL (13.6-17.8); IMMATURE GRANULOCYTES 1.1 %; IMMATURE GRANULOCYTES ABSOLUTE 0.17 10/3/uL (0.0-0.11); LYMPHOCYTES 19.8 %; LYMPHOCYTES ABSOLUTE 3.15 10/3/uL (0.67-4.30); MEAN CORPUS HGB CONC 32.2 g/dL (32.0-36.0); MEAN CORPUSCULAR HEMOGLOB 24.7 pg (26.0-34.0); MEAN CORPUSCULAR VOLUME 76.7 fL (80-100); MEAN PLATELET VOLUME 7.9 fL (9.2-13.0); MONOCYTES 7.9 %; MONOCYTES ABSOLUTE 1.26 10/3/uL (0.21-1.20); NEUTROPHILS 67.6 %; NEUTROPHILS ABSOLUTE 10.78 10/3/uL (2.02-8.40); WHITE BLOOD CELLS 15.9 10/3/uL (4.5-10.5)
[2016-11-03 06:04] LABS: BUN (BLOOD UREA NITROGEN) 12 MG/DL (6-23); CALCIUM, SERUM 8.7 MG/DL (8.5-10.4); CHLORIDE, SERUM 104 MMOL/L (96-112); CO2 (CARBON DIOXIDE) 27 MMOL/L (24-34); CREATININE 1.47 MG/DL (0.70-1.30); GFR AFRICAN AMERICAN 73 ML/MIN (>=60); GFR NON AFRICAN AMERICAN 63 ML/MIN (>=60); SODIUM, SERUM 140 MMOL/L (135-148)
[2016-11-03 06:05] LABS: GLUCOSE, SERUM 67 MG/DL (60-99); POTASSIUM, SERUM 4.4 MMOL/L (3.5-5.3)
[2016-11-03 06:09] LABS: PLATELET COUNT 730 10/3/uL (150-400)
[2016-11-03 06:11] LABS: MANUAL DIFF NO %
[2016-11-04 05:55] LABS: BUN (BLOOD UREA NITROGEN) 15 MG/DL (6-23); CALCIUM, SERUM 8.7 MG/DL (8.5-10.4); CHLORIDE, SERUM 104 MMOL/L (96-112); CO2 (CARBON DIOXIDE) 27 MMOL/L (24-34); CREATININE 1.49 MG/DL (0.70-1.30); GFR AFRICAN AMERICAN 71 ML/MIN (>=60); GFR NON AFRICAN AMERICAN 62 ML/MIN (>=60); POTASSIUM, SERUM 4.3 MMOL/L (3.5-5.3); SODIUM, SERUM 139 MMOL/L (135-148)
[2016-11-04 05:56] LABS: BASOPHILS 0.1 %; BASOPHILS ABSOLUTE 0.02 10/3/uL (0.0-0.16); EOSINOPHILS 3.7 %; EOSINOPHILS ABSOLUTE 0.53 10/3/uL (0.0-0.53); GLUCOSE, SERUM 117 MG/DL (60-99); HEMATOCRIT 24.7 % (40.0-51.0); HEMOGLOBIN 7.8 g/dL (13.6-17.8); IMMATURE GRANULOCYTES 1.1 %; IMMATURE GRANULOCYTES ABSOLUTE 0.16 10/3/uL (0.0-0.11); LYMPHOCYTES 19.4 %; LYMPHOCYTES ABSOLUTE 2.79 10/3/uL (0.67-4.30); MEAN CORPUS HGB CONC 31.6 g/dL (32.0-36.0); MEAN CORPUSCULAR HEMOGLOB 24.6 pg (26.0-34.0); MEAN CORPUSCULAR VOLUME 77.9 fL (80-100); MEAN PLATELET VOLUME 8.2 fL (9.2-13.0); MONOCYTES 8.8 %; MONOCYTES ABSOLUTE 1.26 10/3/uL (0.21-1.20); NEUTROPHILS 66.9 %; NEUTROPHILS ABSOLUTE 9.62 10/3/uL (2.02-8.40); RBC DISTRIBUTION WIDTH 15.1 % (12.0-16.0); RED CELL COUNT 3.17 10/6/uL (4.7-6.1); WHITE BLOOD CELLS 14.4 10/3/uL (4.5-10.5)
[2016-11-04 05:57] LABS: MANUAL DIFF NO %; PLATELET COUNT 752 10/3/uL (150-400)
[2016-11-04 15:26] LABS: INTERNATIONAL NORMAL RATI 1.2 UNITS (-)
[2016-11-04 15:28] LABS: PROTIME (NOT ORD) 15.4 SEC (12.0-14.5)
[2016-11-05 03:50] LABS: BASOPHILS 0.2 %; BASOPHILS ABSOLUTE 0.02 10/3/uL (0.0-0.16); EOSINOPHILS 3.8 %; EOSINOPHILS ABSOLUTE 0.45 10/3/uL (0.0-0.53); HEMATOCRIT 26.2 % (40.0-51.0); HEMOGLOBIN 8.2 g/dL (13.6-17.8); IMMATURE GRANULOCYTES 1.1 %; IMMATURE GRANULOCYTES ABSOLUTE 0.13 10/3/uL (0.0-0.11); LYMPHOCYTES 25.2 %; LYMPHOCYTES ABSOLUTE 2.97 10/3/uL (0.67-4.30); MEAN CORPUS HGB CONC 31.3 g/dL (32.0-36.0); MEAN CORPUSCULAR HEMOGLOB 24.4 pg (26.0-34.0); MONOCYTES 8.9 %; MONOCYTES ABSOLUTE 1.05 10/3/uL (0.21-1.20); NEUTROPHILS 60.8 %; NEUTROPHILS ABSOLUTE 7.15 10/3/uL (2.02-8.40); RBC DISTRIBUTION WIDTH 15.1 % (12.0-16.0); RED CELL COUNT 3.36 10/6/uL (4.7-6.1); WHITE BLOOD CELLS 11.8 10/3/uL (4.5-10.5)
[2016-11-05 03:52] LABS: MANUAL DIFF NO %; PLATELET COUNT 728 10/3/uL (150-400)
[2016-11-05 03:55] LABS: INTERNATIONAL NORMAL RATI 1.2 UNITS (-)
[2016-11-05 04:03] LABS: BUN (BLOOD UREA NITROGEN) 14 MG/DL (6-23); CHLORIDE, SERUM 105 MMOL/L (96-112); CO2 (CARBON DIOXIDE) 28 MMOL/L (24-34); CREATININE 1.46 MG/DL (0.70-1.30); GFR AFRICAN AMERICAN 73 ML/MIN (>=60); GFR NON AFRICAN AMERICAN 63 ML/MIN (>=60); POTASSIUM, SERUM 4.5 MMOL/L (3.5-5.3); SODIUM, SERUM 140 MMOL/L (135-148)
[2016-11-05 04:04] LABS: GLUCOSE, SERUM 154 MG/DL (60-99)
[2016-11-05] MEDS ORDERED: AUG875 PO (13:56)
[2016-11-05] MEDS ORDERED: FOLIC PO (13:57)
[2016-11-05] MEDS ORDERED: PROTONIX PO (13:58)
[2016-11-05] MEDS ORDERED: MIRALAX POWDER1 PKT PO (14:00)
== END 2016-11-05 15:39 | disposition home health service (06) | DRG 854 ==
LOC: ER 23:50 → 5NO 10-29 02:51
PROVIDERS: Emergency Medicine; Hospitalist; Nurse Practitioner; Surgery
PROC: 0Y6X0Z0 Detachment at Right 5th Toe, Complete, Open Approach (ICD-10-PCS; principal; 2016-10-29 12:45)
PROC: 30233N1 Transfusion of Nonautologous Red Blood Cells into Peripheral Vein, Percutaneous Approach (ICD-10-PCS; 2016-10-31)
DX: A41.9 Sepsis, unspecified organism (principal); N17.9 Acute kidney failure, unspecified; E11.52 Type 2 diabetes mellitus with diabetic peripheral angiopathy with gangrene; E11.621 Type 2 diabetes mellitus with foot ulcer; D62 Acute posthemorrhagic anemia; M86.171 Other acute osteomyelitis, right ankle and foot; Z68.42 Body mass index [BMI] 45.0-49.9, adult; E03.9 Hypothyroidism, unspecified; Z86.718 Personal history of other venous thrombosis and embolism; Z79.01 Long term (current) use of anticoagulants; N18.9 Chronic kidney disease, unspecified; E66.01 Morbid (severe) obesity due to excess calories; N62 Hypertrophy of breast; Z79.4 Long term (current) use of insulin; I12.9 Hypertensive chronic kidney disease with stage 1 through stage 4 chronic kidney disease, or unspecified chronic kidney disease
CPT/HCPCS: 36415; 71010; 72131; 73630-RT; 73721-RT; 74000; 74176; 76642-50; 76775; 80048; 80053; 80069; 80202; 81001; 82570; 82607; 82728; 82746; 82962; 83036; 83540; 83550; 83605; 83690; 83735; 83880; 84145; 84156; 84443; 85025; 85610; 85730; 86850; 86900; 86901; 86920; 87015; 87040; 87070; 87075; 87102; 87116; 87205; 88305; 88311; 93971; 97161-GP; 99285; A9270-GY; C9113; J0330; J0690; J1170; J2250; J2405; J2543; J3010; J3370; P9016